=== PATIENT | female | born 1995 | race Caucasian/White ===

== ENCOUNTER → 2020-11-09 | Day surgery (SDC) | payer OTHER ==
[~2020-11-09] VITALS: Ht 157.5 cm; Wt 74.4 kg
[~2020-11-09] MED LIST: ATIVAN0.5 MG PO; CARDIZEM60 MG PO; FLORINEF0.1 MG PO; INDERAL20 MG PO; ZOLOFT50 MG PO
[2020-11-09 08:01] LABS: BASOPHIL 0.4 % (0-2); EOSINOPHIL 1.1 % (0-5); HCT 34.9 % (37.0-47.0); HGB 11.6 g/dl (12.5-16.0); MCH 28.2 pg (25.0-31.0); MCHC 33.2 g/dL (32.0-36.0); MCV 84.9 fL (78.0-100.0); MONOCYTE 9.9 % (0-12); MPV 10.5 fL (6.0-9.5); NEUTROPHIL 69.3 % (41-80); NRBC 0; PLT 368 K/uL (150-400); RBC 4.11 M/uL (4.20-5.40); RDW 13.7 % (11.5-14.0)
[2020-11-09 08:24] LABS: BUN/CREAT RATIO (CALC) 15.2 RATIO; CREATININE 0.46 mg/dL (0.51-0.95); POTASSIUM 3.5 mmol/L (3.5-5.1)
== END | disposition home or self-care (01) ==
LOC: FAS 06:47
PROVIDERS: Anesthesiology; Oral & Maxillofacial Surgery
DX: K02.9 Dental caries, unspecified (principal); K04.7 Periapical abscess without sinus; K01.1 Impacted teeth; I49.8 Other specified cardiac arrhythmias; G24.9 Dystonia, unspecified; Z79.899 Other long term (current) drug therapy; Z88.0 Allergy status to penicillin
CPT/HCPCS: D7140; D7210; 36415; 71045; 80048; 84703; 85025; 93005; J1100; J2250; J2405; J2704; J2710; J3010; J7120